=== PATIENT | male | born 1940 | race Asian ===

== ENCOUNTER 2016-09-03 10:50 | Emergency (ER) | payer OTHER ==
[~2016-09-03] VITALS: Ht 160 cm; Wt 63.5 kg
[~2016-09-03 10:50] MED LIST: ACET-1172 PO; AMLO5TAB4; GLYB1.252; METO50TA3; NEPH
[2016-09-03 10:59] VITALS: BP_SYST 145
--- NOTE | 2016-09-03 11:03 | NUR ---
AMBULATED TO BED 4
--- NOTE | 2016-09-03 11:05 | NUR ---
Dr Cruz at bedside examining patient
--- NOTE | 2016-09-03 11:06 | NUR ---
Pt brought by self, A&Ox4, pt c/o bilateral hip pain and bella thigh pain 08/15 since today, pt had dialysis this am, skin pink and warm, cap refill <3, VS WNL. Addendum: 09/03/16 at 1123 by [email or web address] Pt ambulatory, denies bleeding, states he fell last week, cap refill <3, pedal and radial pulses equal and strong.
[2016-09-03] MEDS ORDERED: KETOROLAC TROMETHAMINE 30 MG VIAL IM ONE (11:30)
[2016-09-03] MEDS ORDERED: MORPHINE 4 MG/ML INJ. SYRINGE IVP ONE (11:30)
[2016-09-03] MEDS ORDERED: ONDANSETRON 4 MG ODT TAB PO ONE (11:30)
--- NOTE | 2016-09-03 12:30 | NUR ---
16# FR In and Out catheter with use of sterile technique. Immediate return of 100 ml urine noted. Urine sample collected and sent to lab. Pt tolerated procedure . Patient unable to toilet self.
[2016-09-03 13:01] LABS: BILIRUBIN,URINE NEGATIVE (NEGATIVE); BLOOD, URINE 2+ (NEGATIVE); CLARITY/URINE CLEAR (CLEAR); COLOR,URINE YELLOW (YELLOW); GLUCOSE,URINE NEGATIVE (NEGATIVE); KETONES,URINE NEGATIVE (NEGATIVE); LEUKOCYTE ESTERASE ,URINE 2+ (NEGATIVE); NITRITE, URINE NEGATIVE (NEGATIVE); PH,URINE 6.5 (5.0-8.0); PROTEIN URINE 2+ (NEGATIVE); UROBILINOGEN,URINE 0.2 (0.2-1.0)
[2016-09-03 13:07] LABS: BACTERIA,URINE FEW /HPF (None Seen)
[2016-09-03 13:08] LABS: MUCUS,URINE None Seen /LPF (None Seen)
--- NOTE | 2016-09-03 13:30 | NUR ---
Patient given written and verbal discharge instructions and verbalizes understanding. ER MD discussed with patient and pt's family the results and treatment provided. Given copies of tests performed in ER. Patient in stable condition. ID arm band removed. Rx of Cipro 500 mg given. Patient educated on pain management and to follow up with PMD. Pain Scale 2/10 tolerable for pt . Opportunity for questions provided and answered.
[2016-09-03 13:31] VITALS: BP_SYST 125
== END 2016-09-03 13:30 | disposition home or self-care (01) ==
LOC: SED 10:50
DX: G89.29 Other chronic pain (principal); M25.551 Pain in right hip; M25.552 Pain in left hip; I12.0 Hypertensive chronic kidney disease with stage 5 chronic kidney disease or end stage renal disease; N18.6 End stage renal disease; Z99.2 Dependence on renal dialysis
CPT/HCPCS: 74176; 81000; 87086; 96372; 96374; 99285; J1885; J2270; Q0162

== ENCOUNTER 2016-12-27 11:59 | Emergency (ER) | payer OTHER ==
[~2016-12-27] VITALS: Ht 167.6 cm; Wt 56.7 kg
[2016-12-27 12:24] VITALS: BP_SYST 140
[2016-12-27 13:04] LABS: BASOPHILS % (AUTO) 0.3 % (0.0-2.0); EOSINOPHILS # (AUTO) 0.3 K/uL (0.0-0.4); EOSINOPHILS % (AUTO) 2.8 % (0.0-4.0); HEMATOCRIT 34.1 % (36-54); LYMPHOCYTES # (AUTO) 0.7 K/uL (1.0-5.5); LYMPHOCYTES % (AUTO) 7.4 % (20.5-51.5); MEAN CORPUSCULAR HEMOGLOBIN 30 pg (27-31); MEAN CORPUSCULAR HGB CONC 32 % (32-36); MEAN CORPUSCULAR VOLUME 92 fL (79.0-98.0); MONOCYTES # (AUTO) 0.7 K/uL (0.0-1.0); MONOCYTES % (AUTO) 7.1 % (1.7-9.3); NEUTROPHILS # (AUTO) 8.1 K/uL (1.8-7.7); NEUTROPHILS % (AUTO) 82.4 % (40.0-70.0); PLATELET COUNT (AUTO) 211 K/uL (130-430); RED BLOOD CELL COUNT(AUTO) 3.72 MIL/uL (4.2-6.2); RED CELL DISTRIBUTION WIDTH 13.3 % (9.0-15.0); WHITE BLOOD COUNT (AUTO) 9.8 K/uL (4.8-10.8)
[2016-12-27 13:09] LABS: ANION GAP 8 (5-15); CALCIUM 9.1 mg/dL (8.4-11.0); CHLORIDE 95 mmol/L (98-107); CREATININE 5.27 mg/dL (0.55-1.30); GLUCOSE 235 mg/dL (70-99); POTASSIUM 3.7 mmol/L (3.5-5.1); SODIUM SERUM 132 mmol/L (136-145); UREA NITROGEN, BLOOD 24 mg/dL (8-21)
[2016-12-27 13:19] LABS: BILIRUBIN,URINE NEGATIVE (NEGATIVE); BLOOD, URINE 2+ (NEGATIVE); CLARITY/URINE CLEAR (CLEAR); COLOR,URINE YELLOW (YELLOW); GLUCOSE,URINE TRACE (NEGATIVE); KETONES,URINE NEGATIVE (NEGATIVE); LEUKOCYTE ESTERASE ,URINE 2+ (NEGATIVE); NITRITE, URINE NEGATIVE (NEGATIVE); PH,URINE 6.5 (5.0-8.0); PROTEIN URINE 2+ (NEGATIVE); UROBILINOGEN,URINE 0.2 (0.2-1.0)
[2016-12-27 13:28] LABS: BACTERIA,URINE MODERATE /HPF (None Seen); WBC,URINE 20-50 /HPF (0-3)
[2016-12-27 14:20] VITALS: BP_SYST 140
== END 2016-12-27 14:20 | disposition home or self-care (01) ==
LOC: SED 11:59
DX: N39.0 Urinary tract infection, site not specified (principal); I12.0 Hypertensive chronic kidney disease with stage 5 chronic kidney disease or end stage renal disease; E11.22 Type 2 diabetes mellitus with diabetic chronic kidney disease; N18.6 End stage renal disease; Z99.2 Dependence on renal dialysis
CPT/HCPCS: 36415; 80048; 81000-TC; 85025; 87086; 99284